=== PATIENT | male | born 1995 | race Caucasian/White ===

== ENCOUNTER 2017-06-30 09:32 | Emergency (ER) | payer OTHER ==
[~2017-06-30] VITALS: Ht 165.1 cm; Wt 68.3 kg
[2017-06-30 09:37] VITALS: BP 139/80
--- NOTE | 2017-06-30 10:09 | NUR ---
PATIENT AMBULATED TO BED 5 AT THIS TIME.
--- NOTE | 2017-06-30 10:19 | NUR ---
21/M BIB GIRLFRIEND PRESENT TO ER C/O 07/06 "ALL OVER" CONSTANT BODYACHES x 3 DAYS WITH PRODUCTIVE COUGH WITH WHITE PHELGM; PT ALSO C/O VOMITTING EPISODE X1 LAST NIGHT; PT IS NOW NAUSEOUS BUT DENIES ANY VOMITTING TODAY; SKIN IS PINK/WARM/DRY; AAOX4 WITH EVEN AND STEADY GAIT; LUNGS CLEAR BL; RR ARE EVEN AND UNLABORED; PT DENIES ANY DIARRHEA OR ANY URINARY COMPLAINTS; VSS; PATIENT POSITIONED FOR COMFORT; HOB ELEVATED; BEDRAILS UP X2; ALL NEEDS MET AT THIS TIME; AWAITING PRIMARY ER MD [place]; WILL CONTINUE TO MONITOR
[2017-06-30 10:45] VITALS: BP 112/81
--- NOTE | 2017-06-30 10:45 | NUR ---
Patient discharged with v/s stable. Written and verbal after care instructions given and explained. Patient alert, oriented and verbalized understanding of instructions. Ambulatory with steady gait. All questions addressed prior to discharge. ID band removed. Patient advised to follow up with PMD. Rx of Azithromycin given. Patient educated on indication of medication including possible reaction and side effects. Opportunity to ask questions provided and answered.
== END 2017-06-30 10:45 | disposition home or self-care (01) ==
LOC: MED 09:32
DX: J06.9 Acute upper respiratory infection, unspecified (principal)
CPT/HCPCS: 99283

== ENCOUNTER 2017-07-14 20:51 | Emergency (ER) | payer OTHER ==
[~2017-07-14] VITALS: Ht 165.1 cm; Wt 68.5 kg
[2017-07-14 20:56] VITALS: BP 160/101
--- NOTE | 2017-07-14 21:35 | NUR ---
21Y M BIB SELF STATES HAD SEX LAST NIGHT; BLISTERS, ITCHINESS TO PENIS SINCE THIS AM; DENIES DISCHARGE. PT DENIES ANY N/V/D, SOB, CP AT THE MOMENT. PT STATES BURNING SENSATION WHEN URINATE.
--- NOTE | 2017-07-14 21:35 | NUR ---
PT TAKEN TO BED 6
[2017-07-14] MEDS ORDERED: cefTRIAXone 250 MG in LIDOCAINE 1% ED 0.9 ML IM ONE (21:45)
[2017-07-14] MEDS ORDERED: AZITHROMYCIN 250 MG TAB PO ONE (21:45)
[2017-07-14 22:11] VITALS: BP 141/91
--- NOTE | 2017-07-14 22:11 | NUR ---
Patient discharged with v/s stable. Written and verbal after care instructions given and explained. Patient verbalized understanding. Ambulatory with steady gait. All questions addressed prior to discharge. Advised to follow up with PMD.
[2017-07-14 23:09] LABS: APPEARANCE,URINE CLEAR (CLEAR); BILIRUBIN,URINE NEGATIVE (NEGATIVE); BLOOD, URINE NEGATIVE (NEGATIVE); COLOR,URINE YELLOW (YELLOW); LEUKOCYTE ESTERASE ,URINE NEGATIVE (NEGATIVE); NITRITE, URINE NEGATIVE (NEGATIVE); UGLUCOSE NEGATIVE (NEGATIVE)
[2017-07-14 23:21] LABS: RBC,URINE 0-5 (RARE) /HPF (0-5); WBC,URINE 0-5 (RARE) /HPF (0-5)
[2017-07-17 12:21] LABS: CHLAMYDIA TRACHOMATIS AMP DNA Negative (Negative)
== END 2017-07-14 22:11 | disposition home or self-care (01) ==
LOC: MED 20:51
DX: Z20.2 Contact with and (suspected) exposure to infections with a predominantly sexual mode of transmission (principal)
CPT/HCPCS: 36415; 81001; 87491; 96372; 99283; J0696; J2001

== ENCOUNTER 2019-03-18 15:24 | Emergency (ER) | payer OTHER ==
[~2019-03-18] VITALS: Ht 167.6 cm; Wt 76.4 kg
[2019-03-18 15:54] VITALS: BP 137/78
--- NOTE | 2019-03-18 16:02 | NUR ---
STREP SAMPLE COLLECTED AND SEND TO THE LAB
--- NOTE | 2019-03-18 16:03 | NUR ---
PT AMBULATED TO ER BED 6
--- NOTE | 2019-03-18 16:11 | NUR ---
PT PRESENTED TO THE ED WITH THE CHEIF C/O COLD SYMPTOMS FOR 3 DAYS. REPORTS DRY COUGH AND FEVER. TOOK DICLO 1 HOUR AGO. PT ALSO REPORTS NAUSEA, DIARRHEA AND VOMITINGFOR 3 DAYS:DIARRHEA X3 AND VOMITING X2 TODAY. NO BLOOD IN D/V. DENIES MEDICAL HX. LUNGS CLEAR. ABDOMEN SOFT, ROUND AND NON-TENDER. ACTIVE BOWEL SOUND. STATES GENERALIZED BODY PAIN OF 10/10 AT THIS TIME.
[2019-03-18] MEDS ORDERED: AMOXICILLIN 500 MG CAP PO ONE (16:50)
[2019-03-18] MEDS ORDERED: LIDOCAINE VISCOUS 2% 20 ML UDC PO ONE (16:50)
[2019-03-18] MEDS ORDERED: KETOROLAC 60 MG/2 ML VIAL IM ONE (16:50)
--- NOTE | 2019-03-18 17:27 | NUR ---
PT BEING EVALUATED BY ER AT THIS TIME.
--- NOTE | 2019-03-18 17:33 | NUR ---
Patient discharged with v/s stable. Written and verbal after care instructions given and explained. Patient alert, oriented and verbalized understanding of instructions. Ambulatory with steady gait. All questions addressed prior to discharge. ID band removed. Patient advised to follow up with PMD. Rx of LIDOCAINE, PROMETHAZINE, MOTRIN AND AMOXICILLIN given. Patient educated on indication of medication including possible reaction and side effects. Opportunity to ask questions provided and answered.
[2019-03-18 17:34] VITALS: BP 127/73
== END 2019-03-18 17:33 | disposition home or self-care (01) ==
LOC: MED 15:24
DX: J02.8 Acute pharyngitis due to other specified organisms (principal); B96.89 Other specified bacterial agents as the cause of diseases classified elsewhere
CPT/HCPCS: 87081; 96372; 99283; J1885

== ENCOUNTER 2020-04-28 07:28 | Emergency (ER) | payer OTHER ==
[~2020-04-28] VITALS: Ht 162.6 cm; Wt 86.2 kg
[2020-04-28 07:32] VITALS: BP 136/73
--- NOTE | 2020-04-28 07:34 | NUR ---
Patient ambulated to bed 7.
--- NOTE | 2020-04-28 07:34 | NUR ---
Ambulated to bed 7
--- NOTE | 2020-04-28 07:37 | NUR ---
24 Y/O M C/C RIGHT UPPER TOOTHACHE X 1 DAY. PER PT INJURED TOOTH WITH TOOTH BRUSH. NO ORAL TRAUMA NOTED, NO LOST/CRACK OF TOOTH NOTED. TEETH INTACT. TAKEN IBUPROFEN WITH NO RELIEF. PT NKA. NO HX. NO RX. NO NVD. SIDE RAIL X1.
[2020-04-28 08:06] VITALS: BP 136/73
--- NOTE | 2020-04-28 08:06 | NUR ---
Patient discharged with v/s stable. Written and verbal after care instructions given and explained. Patient alert, oriented and verbalized understanding of instructions. Ambulatory with steady gait. All questions addressed prior to discharge. ID band removed. Patient advised to follow up with PMD. Rx of MOTRIN,PENICILLIN given. Patient educated on indication of medication including possible reaction and side effects. Opportunity to ask questions provided and answered.
== END 2020-04-28 08:06 | disposition home or self-care (01) ==
LOC: MED 07:28
DX: K08.89 Other specified disorders of teeth and supporting structures (principal)
CPT/HCPCS: 99283

== ENCOUNTER 2020-05-31 13:44 | Emergency (ER) | payer OTHER ==
[~2020-05-31] VITALS: Ht 167.6 cm; Wt 86.2 kg
[2020-05-31 13:56] VITALS: BP 138/90
--- NOTE | 2020-05-31 13:56 | NUR ---
Pt placed in tent for covid precautions
--- NOTE | 2020-05-31 13:59 | NUR ---
24 y/o male from home c/o sore throat x 2 days. Denies cough/sob. States every time the weather changes this occurs. RR even and unlabored. 8/10 sharp pain provoked by swallowing. Awake and alert. VSS
--- NOTE | 2020-05-31 14:55 | NUR ---
Dr Jurado in tent examining pt
[2020-05-31 15:06] VITALS: BP 130/80
--- NOTE | 2020-05-31 15:06 | NUR ---
Patient discharged with v/s stable. Written and verbal after care instructions given and explained. Patient alert, oriented and verbalized understanding of instructions. Ambulatory with steady gait. All questions addressed prior to discharge. ID band removed. Patient advised to follow up with PMD. Rx of PENICILLIN given. Patient educated on indication of medication including possible reaction and side effects. Opportunity to ask questions provided and answered.
== END 2020-05-31 15:06 | disposition home or self-care (01) ==
LOC: MED 13:44
DX: K04.7 Periapical abscess without sinus (principal)
CPT/HCPCS: 99283

== ENCOUNTER 2021-05-28 14:17 | Emergency (ER) | payer OTHER ==
[~2021-05-28] VITALS: Ht 167.6 cm; Wt 89.8 kg
[2021-05-28 14:22] VITALS: BP 125/89
--- NOTE | 2021-05-28 14:25 | NUR ---
[facility] STORY USING U/S TO FURTHER ASSESS THE PATIENT.
--- NOTE | 2021-05-28 14:25 | NUR ---
PT SEEN IN TRIAGE BY NIMO STORY.
[2021-05-28] MEDS ORDERED: IBUP-2213 PO (14:36)
[2021-05-28] MEDS ORDERED: CEPH-588 PO (14:36)
--- NOTE | 2021-05-28 14:54 | NUR ---
PT SEEN AND D/C BY [facility] STORY, NO NURSING INTERVENTIONS PROVIDED
--- NOTE | 2021-05-28 14:56 | NUR ---
Patient discharged with v/s stable. Written and verbal after care instructions ABOUT EXCISION AND SKIN LESIONS, LYMPHADENOPATHY, LIPOMA given and explained. Patient alert, oriented and verbalized understanding of instructions. Ambulatory with steady gait. All questions addressed prior to discharge. ID band removed. Patient advised to follow up with PMD. Rx of CEPHALEXIN AND IBUPROFEN given. Patient educated on indication of medication including possible reaction and side effects. Opportunity to ask questions provided and answered.
[2021-05-29] MEDS ORDERED: PENI-321 PO (05:34)
== END 2021-05-28 14:56 | disposition home or self-care (01) ==
LOC: MED 14:17
DX: L98.9 Disorder of the skin and subcutaneous tissue, unspecified (principal); R03.0 Elevated blood-pressure reading, without diagnosis of hypertension; R07.89 Other chest pain; Z79.899 Other long term (current) drug therapy
CPT/HCPCS: 99283

== ENCOUNTER 2021-05-29 04:23 | Emergency (ER) | payer OTHER ==
[~2021-05-29] VITALS: Ht 167.6 cm; Wt 89.8 kg
[~2021-05-29 04:23] MED LIST: CEPH-588 PO; IBUP-2213 PO
[2021-05-29 04:30] VITALS: BP 131/77
--- NOTE | 2021-05-29 04:33 | NUR ---
TO LOBBY A/W BED AMBULATORY
--- NOTE | 2021-05-29 05:20 | NUR ---
SEEN AND EXAMINED BY TUTU .
[2021-05-29] MEDS ORDERED: PENI-321 PO (05:34)
[2021-05-29 05:40] VITALS: BP 131/77
--- NOTE | 2021-05-29 05:40 | NUR ---
Patient discharged with v/s stable. Written and verbal after care instructions given and explained. Patient alert, oriented and verbalized understanding of instructions. Ambulatory with steady gait. All questions addressed prior to discharge. ID band removed. Patient advised to follow up with PMD. Rx of PENICILLIN V. given. Patient educated on indication of medication including possible reaction and side effects. Opportunity to ask questions provided and answered.
== END 2021-05-29 05:40 | disposition home or self-care (01) ==
LOC: MED 04:23
DX: K08.89 Other specified disorders of teeth and supporting structures (principal); Z79.899 Other long term (current) drug therapy
CPT/HCPCS: 99283

== ENCOUNTER 2021-08-10 08:37 | Emergency (ER) | payer OTHER ==
[~2021-08-10] VITALS: Ht 167.6 cm; Wt 89.8 kg
[~2021-08-10 08:37] MED LIST changes: +PENI-321 PO
[2021-08-10 08:49] VITALS: BP 131/83
--- NOTE | 2021-08-10 09:05 | NUR ---
SOB AND PRODUCTIVE COUGH WITH GREEN THICK PHLEGM X 2 WEEKS. NON VACCINATED. AFEBRILE. ALSO PRESENTS WITH ABCESS ON HIS GUMS.
[2021-08-10] MEDS ORDERED: AMOXIL/CLAVULANATE 875/125 MG 1 TAB PO SCH (09:15)
[2021-08-10] MEDS ORDERED: AMOX-999 PO (09:25)
--- NOTE | 2021-08-10 10:26 | NUR ---
PO MEDS GIVEN-NADR AT THIS TIME.
[2021-08-10 10:34] VITALS: BP 127/75
== END 2021-08-10 10:34 | disposition home or self-care (01) ==
LOC: MED 08:37
DX: K04.7 Periapical abscess without sinus (principal); Z20.822 Contact with and (suspected) exposure to COVID-19; R05.9 Cough, unspecified; R06.02 Shortness of breath; Z79.899 Other long term (current) drug therapy
CPT/HCPCS: 71045; 99284; U0003

== ENCOUNTER 2021-08-24 08:31 | Emergency (ER) | payer OTHER ==
[~2021-08-24] VITALS: Ht 167.6 cm; Wt 90.3 kg
[~2021-08-24 08:31] MED LIST changes: +AMOX-999 PO
[2021-08-24 08:47] VITALS: BP 139/86
--- NOTE | 2021-08-24 08:53 | NUR ---
PT AMBULATED TO BED
--- NOTE | 2021-08-24 09:02 | NUR ---
26YO M C/O PRODUCTIVE COUGH, RUNNY NOSE, SORE THROAT AND SOB X 1 MONTH. ALSO WITH DIARRHEA X 3 DAYS. PT WAS SEEN IN ER 2 WEEKS AGO AND WAS PRESCRIBED WITH UNRECALLED ANTIBIOTICS. PT ON 14TH DAY OF ABX. LUNG SOUNDS WHEEZING NOTED. PT STATES DIFFICULTY BREATHING WHEN PHELGM COMES UP. ON ROOM AIR, 98% O2 SATURATION. PMH: NONE MEDS: NONE NKA
--- NOTE | 2021-08-24 09:46 | NUR ---
ERMD AT BEDSIDE EXAMINING PT
[2021-08-24] MEDS ORDERED: ALBU0.0912 INH (09:58)
[2021-08-24] MEDS ORDERED: PRED20TA5 PO (09:58)
[2021-08-24] MEDS ORDERED: LORA10TA19 PO (09:58)
[2021-08-24 10:07] VITALS: BP 139/86
--- NOTE | 2021-08-24 10:11 | NUR ---
Patient discharged with v/s stable. Written and verbal after care instructions given and explained. Patient alert, oriented and verbalized understanding of instructions. Ambulatory with steady gait. All questions addressed prior to discharge. ID band removed. Patient advised to follow up with PMD. Rx of ALBUTEROL SULFATE, LORATADINE, PREDNISONE given. Patient educated on indication of medication including possible reaction and side effects. Opportunity to ask questions provided and answered.
== END 2021-08-24 10:11 | disposition home or self-care (01) ==
LOC: MED 08:31
DX: R05.9 Cough, unspecified (principal); R09.81 Nasal congestion; R03.0 Elevated blood-pressure reading, without diagnosis of hypertension; Z88.0 Allergy status to penicillin; Z79.899 Other long term (current) drug therapy
CPT/HCPCS: 99283

== ENCOUNTER 2021-10-15 15:01 | Emergency (ER) | payer OTHER ==
[~2021-10-15] VITALS: Ht 160 cm; Wt 92.5 kg
[~2021-10-15 15:01] MED LIST changes: +ALBU0.0912 INH; +LORA10TA19 PO; +PRED20TA5 PO
[2021-10-15 15:14] VITALS: BP 157/96
--- NOTE | 2021-10-15 15:17 | NUR ---
PT AMBULATED TO LOBBY WITH STEADY GAIT
--- NOTE | 2021-10-15 15:27 | NUR ---
PT MOVED TO [facility] MEADOWS AT CHAIR EVALUATING PATIENT
[2021-10-15] MEDS ORDERED: AMOX-1000 PO (15:30)
[2021-10-15] MEDS ORDERED: KETOROLAC 30 MG/ML VIAL IM ONE (15:30)
[2021-10-15] MEDS ORDERED: NAPR-54 PO (15:30)
[2021-10-15 15:45] VITALS: BP 157/96
--- NOTE | 2021-10-15 15:46 | NUR ---
PT ASSESSED AND DISHCARGED BY NIMO COREA
== END 2021-10-15 15:45 | disposition home or self-care (01) ==
LOC: MED 15:01
DX: K08.89 Other specified disorders of teeth and supporting structures (principal)
CPT/HCPCS: 96372; 99283; J1885

== ENCOUNTER 2021-10-28 13:32 | Emergency (ER) | payer OTHER ==
[~2021-10-28] VITALS: Ht 167.6 cm; Wt 92.1 kg
[~2021-10-28 13:32] MED LIST changes: +AMOX-1000 PO; +NAPR-54 PO
[2021-10-28 14:32] VITALS: BP 132/85
--- NOTE | 2021-10-28 19:57 | NUR ---
CALLED AT 1946 NO ANSWER
--- NOTE | 2021-10-28 20:18 | NUR ---
PT CLEARED FOR DISCHARGE BY DR. COLMENARES. PT LEFT WITHOUT INSTRUCTIONS.
== END 2021-10-28 20:18 | disposition home or self-care (01) ==
LOC: MED 13:32
DX: M79.671 Pain in right foot (principal); Z79.899 Other long term (current) drug therapy
CPT/HCPCS: 73630; 99283

== ENCOUNTER 2021-11-02 10:08 | Emergency (ER) | payer OTHER ==
[~2021-11-02] VITALS: Ht 167.6 cm; Wt 91.6 kg
[2021-11-02 10:30] VITALS: BP 137/76
--- NOTE | 2021-11-02 12:53 | NUR ---
LIZ SWAB COLLECTED AND WALKED TO LAB.
[2021-11-02] MEDS ORDERED: PRED20TA5 PO (13:48)
[2021-11-02] MEDS ORDERED: AZIT250T4 PO (13:48)
[2021-11-02] MEDS ORDERED: CODE5SYR5 PO (13:48)
[2021-11-02] MEDS ORDERED: NAPR-54 PO (13:48)
--- NOTE | 2021-11-02 14:09 | NUR ---
NO NURSING CARE GIVEN. Patient discharged with v/s stable. Written and verbal after care instructions given and explained. Patient alert, oriented and verbalized understanding of instructions. Ambulatory with steady gait. All questions addressed prior to discharge. ID band removed. Patient advised to follow up with PMD. Rx of ZITHROMAX, PROMETH-CODEIN, NAPROSYN given. Patient educated on indication of medication including possible reaction and side effects. Opportunity to ask questions provided and answered.
== END 2021-11-02 14:09 | disposition home or self-care (01) ==
LOC: MED 10:08
DX: B34.9 Viral infection, unspecified (principal); Z20.822 Contact with and (suspected) exposure to COVID-19; Z79.899 Other long term (current) drug therapy
CPT/HCPCS: 71045; 99284

== ENCOUNTER 2022-01-25 08:14 | Emergency (ER) | payer OTHER ==
[~2022-01-25] VITALS: Ht 167.6 cm; Wt 92.5 kg
[~2022-01-25 08:14] MED LIST changes: +AZIT250T4 PO; +CODE5SYR5 PO
[2022-01-25 08:23] VITALS: BP 135/70
--- NOTE | 2022-01-25 08:33 | NUR ---
Dr. bernal evaluating patient at bedside.
[2022-01-25] MEDS ORDERED: KETOROLAC 60 MG/2 ML VIAL IM ONE (08:35)
--- NOTE | 2022-01-25 08:38 | NUR ---
26 y/o male c/o right upper toothache x 2 days. Patient has 10/10, sharp pain. Patient thinks he bit hard food that caused the pain to come on. Patient denies taking any pain medication. Patient has dental appointment on February 11. Medical History: Denies NKDA
--- NOTE | 2022-01-25 08:41 | NUR ---
26/M PRESENTS TO ED WITH C/O TOOTHACHE TO RIGHT UPPER TOOTH X2 DAYS, STATES "I WAS EATING SOMETHING HARD AND THE PAIN BEGAN." PATIENT DENIES TAKING MEDICATION FOR PAIN, STATES HE MADE A DENTIST APPOINTMENT BUT IS NOT FOR A COUPLE WEEKS. DENIES FEVERS, CHILLS.
[2022-01-25] MEDS ORDERED: IBUP-2213 PO (08:47)
[2022-01-25] MEDS ORDERED: PENI500T20 PO (08:47)
[2022-01-25 09:05] VITALS: BP 135/70
--- NOTE | 2022-01-25 09:05 | NUR ---
Patient discharged with v/s stable. Written and verbal after care instructions given. Patient alert, oriented and verbalized understanding of instructions. Ambulatory with steady gait. All questions addressed prior to discharge. ID band removed. Patient advised to follow up with PMD. Rx of Penicillin V Potassium and Ibuprofen given. Opportunity to ask questions provided and answered.
== END 2022-01-25 09:05 | disposition home or self-care (01) ==
LOC: MED 08:14
DX: K04.7 Periapical abscess without sinus (principal); Z79.899 Other long term (current) drug therapy
CPT/HCPCS: 96372; 99283; J1885

== ENCOUNTER 2022-03-08 09:32 | Emergency (ER) | payer OTHER ==
[~2022-03-08] VITALS: Ht 167.6 cm; Wt 93.4 kg
[~2022-03-08 09:32] MED LIST changes: +PENI500T20 PO
[2022-03-08 09:38] VITALS: BP 151/95
[2022-03-08] MEDS ORDERED: ONDANSETRON 4 MG/2 ML VIAL IVP ONE (09:50)
[2022-03-08] MEDS ORDERED: fentaNYL citrate 0.05 MG/ML VIAL IVP ONE (09:50)
--- NOTE | 2022-03-08 09:54 | NUR ---
dr vallejo evaluating patient at bedside
[2022-03-08] MEDS ORDERED: ALBUTEROL SULFATE/IPRATROPIU 3 ML SOL IH ONE (10:00)
[2022-03-08] MEDS ORDERED: predniSONE 20 MG TAB PO ONE (10:00)
--- NOTE | 2022-03-08 10:08 | NUR ---
[facility] GIVEN ORDERED ENCOURAGED PATIENT FOR INTERMITTENT DEEP BREATH DURING THERAPY
--- NOTE | 2022-03-08 10:10 | NUR ---
26 y/o male BIB self. Patient states he smoked marijuana yesterday, passed out last night and had an unwitnessed fall. Patient has been having SOB since yesterday. Denies Nausea, Vomiting, Diarrhea, Dysuria, Hematuria. Patient is also having testicular pain, comes and goes 5/10. Medical History: Asthma NKDA
--- NOTE | 2022-03-08 10:12 | NUR ---
Radiology at bedside.
[2022-03-08] MEDS ORDERED: DESL1T12 PO (11:34)
[2022-03-08] MEDS ORDERED: ALBU0.0912 IH (11:34)
[2022-03-08] MEDS ORDERED: FLONAS NS (11:34)
[2022-03-08] MEDS ORDERED: PRED20TA5 PO (11:34)
--- NOTE | 2022-03-08 11:51 | NUR ---
Patient discharged with v/s stable. Written and verbal after care instructions given. Patient alert, oriented and verbalized understanding of instructions. Ambulatory with steady gait. All questions addressed prior to discharge. ID band removed. Patient advised to follow up with PMD. Rx of albuterol sulfate, Clarinex-D and prednisone given. Opportunity to ask questions provided and answered. Work note handed to patient.
--- NOTE | 2022-03-08 11:52 | NUR ---
The patient's care was reviewed and supervised by Pari Mendez RN.
== END 2022-03-08 11:51 | disposition home or self-care (01) ==
LOC: MED 09:32
DX: J45.901 Unspecified asthma with (acute) exacerbation (principal); J30.9 Allergic rhinitis, unspecified; F12.21 Cannabis dependence, in remission; R03.0 Elevated blood-pressure reading, without diagnosis of hypertension; F17.200 Nicotine dependence, unspecified, uncomplicated
CPT/HCPCS: 71045; 81002; 94640; 99283; J7512; Q0092

== ENCOUNTER 2022-05-22 14:21 | Emergency (ER) | payer OTHER ==
[~2022-05-22] VITALS: Ht 167.6 cm; Wt 90.7 kg
[~2022-05-22 14:21] MED LIST changes: +ALBU0.0912 IH; +DESL1T12 PO; +FLONAS NS
[2022-05-22 14:22] VITALS: BP 145/76
--- NOTE | 2022-05-22 14:30 | NUR ---
C/O SOB , COUGH X 3 WEEKS AND SORE THROAT, TOOTH PAIN X 2 WEEKS. O2SAT 95% AT THIS TIME.PMH: ASTHMA.DENIES N/V/D; SKIN IS PINK/WARM/DRY; AAOX4 WITH EVEN AND STEADY GAIT; LUNGS WHEEZING BL; HR EVEN AND REGULAR. PATIENT STATES PAIN OF 0/10 AT THIS TIME.
[2022-05-22] MEDS ORDERED: ALBUTEROL SULFATE/IPRATROPIU 3 ML SOL IH ONE (14:50)
[2022-05-22] MEDS ORDERED: PRED20TA5 PO (15:26)
[2022-05-22] MEDS ORDERED: AMOX500C25 PO (15:26)
[2022-05-22] MEDS ORDERED: PROM118S5 PO (15:26)
[2022-05-22] MEDS ORDERED: ALBU0.0912 IH (15:26)
--- NOTE | 2022-05-22 15:35 | NUR ---
Patient discharged with v/s stable. Written and verbal after care instructions given and explained. Patient alert, oriented and verbalized understanding of instructions. Ambulatory with steady gait. All questions addressed prior to discharge. ID band removed. Patient advised to follow up with PMD. Rx of AMOXICILLIN, DELTASONE, PROMETHAZINE given. Patient educated on indication of medication including possible reaction and side effects. Opportunity to ask questions provided and answered.
[2022-05-22] MEDS: predniSONE 20 MG TAB PO ONE ×2 (15:37→15:48)
[2022-05-22 15:56] VITALS: BP 144/79
== END 2022-05-22 15:56 | disposition home or self-care (01) ==
LOC: MED 14:21
DX: J45.909 Unspecified asthma, uncomplicated (principal); K08.89 Other specified disorders of teeth and supporting structures; R03.0 Elevated blood-pressure reading, without diagnosis of hypertension; R05.9 Cough, unspecified; R06.02 Shortness of breath; Z79.899 Other long term (current) drug therapy
CPT/HCPCS: 94640; 99283; J7512

== ENCOUNTER 2022-08-06 19:45 | Emergency (ER) | payer OTHER ==
[~2022-08-06] VITALS: Ht 162.6 cm; Wt 94.8 kg
[~2022-08-06 19:45] MED LIST changes: +AMOX500C25 PO; +PROM118S5 PO
[2022-08-06 19:53] VITALS: BP 132/77
--- NOTE | 2022-08-06 19:58 | NUR ---
PT TO [facility].
[2022-08-06] MEDS ORDERED: ALBUTEROL SULFATE/IPRATROPIU 3 ML SOL IH ONE ×2 (20:10→20:30)
[2022-08-06] MEDS ORDERED: ALBU0.0912 IH (20:12)
--- NOTE | 2022-08-06 20:14 | NUR ---
Respiratory Therapist with patient.
[2022-08-06] MEDS ORDERED: PRED20TA5 PO (20:28)
--- NOTE | 2022-08-06 21:00 | NUR ---
pt expressed relief. denies sob. states he feels so much better.
[2022-08-06 21:01] VITALS: BP 136/75
--- NOTE | 2022-08-06 21:01 | NUR ---
Patient discharged with v/s stable. Written and verbal after care instructions given and explained. Patient alert, oriented and verbalized understanding of instructions. Ambulatory with steady gait. All questions addressed prior to discharge. ID band removed. Patient advised to follow up with PMD. Rx of albuterol and prednisone given. Patient educated on indication of medication including possible reaction and side effects. Opportunity to ask questions provided and answered.
== END 2022-08-06 21:01 | disposition home or self-care (01) ==
LOC: MED 19:45
DX: J45.901 Unspecified asthma with (acute) exacerbation (principal)
CPT/HCPCS: 94640; 99283

== ENCOUNTER 2022-09-20 13:34 | Emergency (ER) | payer OTHER ==
[~2022-09-20] VITALS: Ht 167.6 cm; Wt 98.4 kg
[2022-09-20 13:38] VITALS: BP 133/79
[2022-09-20] MEDS ORDERED: ALBUTEROL SULFATE/IPRATROPIU 3 ML SOL IH ONE (13:45)
[2022-09-20] MEDS ORDERED: ALBUTEROL 0.083% 2.5 MG/3 ML NEBU INH ONE ×2 (14:10)
--- NOTE | 2022-09-20 14:30 | NUR ---
27 y/o male bib self, c/o cough and sob that started 1 hour prior to arrival. pt state she used inhaler when s/s started with moderate relief. pt states he is still having some difficulty breathing. a&ox4, ambulates with steady gait. skin pink/warm/dry/intact. denies fever, chills, n/v/d. lung wheezing bl, heart sounds even and regular. ermd made aware of pt. pmh: asthma nka
--- NOTE | 2022-09-20 14:33 | NUR ---
amena and flu swabbed
[2022-09-20] MEDS ORDERED: methylPREDNISolone SS 125 MG/2 ML VIAL IM ONE (15:40)
[2022-09-20] MEDS ORDERED: PRED20TA5 PO (15:43)
[2022-09-20] MEDS ORDERED: PROM118S5 PO (15:43)
[2022-09-20] MEDS ORDERED: ALBU0.0912 IH (15:43)
[2022-09-20 15:55] VITALS: BP 133/79
--- NOTE | 2022-09-20 15:55 | NUR ---
Patient discharged with v/s stable. Written and verbal after care instructions given and explained. Patient alert, oriented and verbalized understanding of instructions. Ambulatory with steady gait. All questions addressed prior to discharge. ID band removed. Patient advised to follow up with PMD. Rx of albuterol, prednisone, promethazine (sent) given. Patient educated on indication of medication including possible reaction and side effects. Opportunity to ask questions provided and answered. copy of labs and imaging given
== END 2022-09-20 15:55 | disposition home or self-care (01) ==
LOC: MED 13:34
DX: J45.901 Unspecified asthma with (acute) exacerbation (principal); Z20.822 Contact with and (suspected) exposure to COVID-19; Z79.899 Other long term (current) drug therapy; Z79.2 Long term (current) use of antibiotics; Z79.1 Long term (current) use of non-steroidal anti-inflammatories (NSAID)
CPT/HCPCS: 71045; 87426; 87804; 94640; 96372; 99285; J2930; J7613

== ENCOUNTER 2022-12-01 03:36 | Emergency (ER) | payer OTHER ==
[~2022-12-01] VITALS: Ht 167.6 cm; Wt 127.9 kg
[2022-12-01 03:50] VITALS: BP 121/75
--- NOTE | 2022-12-01 03:50 | NUR ---
to bed ambulatory
--- NOTE | 2022-12-01 04:12 | NUR ---
Dr. Marin examining patient.
--- NOTE | 2022-12-01 04:17 | NUR ---
Michel garcia in [facility] - 12/01/[address] at [address] Marin examining patient.
[2022-12-01] MEDS ORDERED: ALBUTEROL 0.083% 2.5 MG/3 ML NEBU INH ONE (04:20)
[2022-12-01] MEDS ORDERED: predniSONE 20 MG TAB PO ONE (04:20)
[2022-12-01] MEDS ORDERED: IPRATROPIUM 0.02% 0.5 MG/2.5 ML NEBU INH ONE (04:20)
--- NOTE | 2022-12-01 04:20 | NUR ---
Pt BIB family to ED C/O shortness of breath. Pt reports underlying history of asthma and states he ran out of his inhaler. Reports having a mild dry throat but denies any fever, hemoptysis, chills, nausea, vomiting. Symptoms mild in nature but called into work this morning. No alleviating factors
[2022-12-01] MEDS ORDERED: ALBU0.0912 IH (04:27)
[2022-12-01] MEDS ORDERED: PRED20TA5 PO ×2 (04:27→04:35)
== END 2022-12-01 05:25 | disposition home or self-care (01) ==
LOC: MED 03:36
DX: J45.909 Unspecified asthma, uncomplicated (principal)
CPT/HCPCS: 94640; 99283; J7512; J7613; J7644

== ENCOUNTER 2022-12-27 11:27 | Emergency (ER) | payer OTHER ==
[~2022-12-27] VITALS: Ht 167.6 cm; Wt 97.1 kg
[~2022-12-27 11:27] MED LIST changes: -DESL1T12 PO; +DESL1TBM PO
[2022-12-27 11:34] VITALS: BP 142/87
--- NOTE | 2022-12-27 12:00 | NUR ---
PA Garcia evaluating patient at bedside.
--- NOTE | 2022-12-27 12:19 | NUR ---
Lab at bedside.
[2022-12-27 12:55] LABS: APPEARANCE,URINE CLEAR (CLEAR); BILIRUBIN,URINE NEGATIVE (NEGATIVE); BLOOD, URINE NEGATIVE (NEGATIVE); COLOR,URINE YELLOW (YELLOW); LEUKOCYTE ESTERASE ,URINE NEGATIVE (NEGATIVE); NITRITE, URINE NEGATIVE (NEGATIVE); UGLUCOSE NEGATIVE (NEGATIVE)
== END 2022-12-27 13:00 | disposition home or self-care (01) ==
LOC: MED 11:27
DX: N48.89 Other specified disorders of penis (principal); J45.909 Unspecified asthma, uncomplicated; Z79.899 Other long term (current) drug therapy
CPT/HCPCS: 81003; 86592; 87491; 99283

== ENCOUNTER 2023-03-17 14:08 | Emergency (ER) | payer OTHER ==
[~2023-03-17] VITALS: Ht 167.6 cm; Wt 99.3 kg
[2023-03-17 14:36] VITALS: BP 135/80
[2023-03-17] MEDS ORDERED: ALBUTEROL SULFATE/IPRATROPIU 3 ML SOL IH ONE (15:40)
--- NOTE | 2023-03-17 15:48 | NUR ---
TO CHAIR Adrian MINER WITH NO DIFF.
[2023-03-17] MEDS ORDERED: IBUP-2213 PO (16:29)
[2023-03-17] MEDS ORDERED: ALBU0.0912 IH (16:29)
[2023-03-17] MEDS ORDERED: PRED50TA2 PO (16:29)
[2023-03-17] MEDS ORDERED: PROM118S5 PO (16:29)
[2023-03-17 17:10] VITALS: BP 139/88
--- NOTE | 2023-03-17 17:10 | NUR ---
Patient discharged with v/s stable. Written and verbal after care FOR ASTHMA given and explained. Patient alert, oriented and verbalized understanding of instructions. Ambulatory with steady gait. All questions addressed prior to discharge. ID band removed. Patient advised to follow up with PMD. Rx of ALBUTEROL, IBUPROFEN, PREDNISONE, PROMETHAZINE given. Opportunity to ask questions provided and answered.
== END 2023-03-17 17:10 | disposition home or self-care (01) ==
LOC: MED 14:08
DX: S29.011A Strain of muscle and tendon of front wall of thorax, initial encounter (principal); J45.901 Unspecified asthma with (acute) exacerbation; R03.0 Elevated blood-pressure reading, without diagnosis of hypertension; Z79.899 Other long term (current) drug therapy; Z79.1 Long term (current) use of non-steroidal anti-inflammatories (NSAID); Z79.2 Long term (current) use of antibiotics; X58.XXXA Exposure to other specified factors, initial encounter; Y92.89 Other specified places as the place of occurrence of the external cause; Y93.89 Activity, other specified; Y99.8 Other external cause status
CPT/HCPCS: 71101; 94640; 99283

== ENCOUNTER 2023-07-15 14:34 | Emergency (ER) | payer OTHER ==
[~2023-07-15] VITALS: Ht 172.7 cm; Wt 81.6 kg
[~2023-07-15 14:34] MED LIST changes: +PRED50TA2 PO
[2023-07-15 15:19] VITALS: BP 140/92; PULSE 93; RESP 18; TEMP 98; O2SAT 98
[2023-07-15] MEDS ORDERED: DEXAMETHASONE 10 MG/ML VIAL IM ONE (16:20)
[2023-07-15] MEDS ORDERED: KETOROLAC 30 MG/ML VIAL IM ONE (16:20)
[2023-07-15] MEDS ORDERED: AMOX1TAB8 PO (17:25)
[2023-07-15] MEDS ORDERED: PROM118S5 PO (17:25)
[2023-07-15] MEDS ORDERED: KETOROLAC 30 MG/ML VIAL ONE (17:36)
[2023-07-15] MEDS ORDERED: DEXAMETHASONE 10 MG/ML VIAL ONE (17:36)
== END 2023-07-15 17:43 | disposition home or self-care (01) ==
LOC: MED 14:34
DX: J02.8 Acute pharyngitis due to other specified organisms (principal); B97.89 Other viral agents as the cause of diseases classified elsewhere; J45.909 Unspecified asthma, uncomplicated; Z79.899 Other long term (current) drug therapy
CPT/HCPCS: 96372; 99284; J1100; J1885

== ENCOUNTER 2023-08-22 15:02 | Emergency (ER) | payer OTHER ==
[~2023-08-22] VITALS: Ht 167.6 cm; Wt 91.2 kg
[~2023-08-22 15:02] MED LIST changes: +AMOX1TAB8 PO
[2023-08-22 15:23] VITALS: BP 141/79; PULSE 88; RESP 18; TEMP 96.5; O2SAT 99
[2023-08-22] MEDS ORDERED: KETOROLAC 30 MG/ML VIAL IM ONE (16:30)
[2023-08-22] MEDS ORDERED: IBUP-2213 PO (16:43)
[2023-08-22] MEDS ORDERED: AMOX1TAB8 PO (16:43)
[2023-08-22] MEDS ORDERED: CHLO473S62 PO (16:43)
[2023-08-22 17:22] VITALS: BP 141/79; PULSE 88; RESP 18; TEMP 96.5; O2SAT 99
== END 2023-08-22 17:25 | disposition home or self-care (01) ==
LOC: MED 15:02
DX: K08.89 Other specified disorders of teeth and supporting structures (principal); J45.909 Unspecified asthma, uncomplicated; Z79.899 Other long term (current) drug therapy; Z79.2 Long term (current) use of antibiotics; Z79.1 Long term (current) use of non-steroidal anti-inflammatories (NSAID)
CPT/HCPCS: 96372; 99283; J1885

== ENCOUNTER 2023-09-09 16:14 | Emergency (ER) | payer OTHER ==
[~2023-09-09] VITALS: Ht 167.6 cm; Wt 88.9 kg
[~2023-09-09 16:14] MED LIST changes: +CHLO473S62 PO
[2023-09-09 16:18] VITALS: BP 157/94; PULSE 116; RESP 20; TEMP 99.2; O2SAT 98
[2023-09-09 16:56] LABS: FLU A ANTIGEN negative (NEGATIVE); FLU B ANTIGEN NEGATIVE (NEGATIVE)
[2023-09-09] MEDS ORDERED: ALBU0.0912 INH (17:24)
[2023-09-09] MEDS ORDERED: BENZ200C4 PO (17:24)
[2023-09-09 17:56] VITALS: BP 157/94; PULSE 116; RESP 20; TEMP 99.2; O2SAT 98
== END 2023-09-09 17:54 | disposition home or self-care (01) ==
LOC: MED 16:14
DX: J06.9 Acute upper respiratory infection, unspecified (principal); B34.9 Viral infection, unspecified; Z20.822 Contact with and (suspected) exposure to COVID-19; J45.909 Unspecified asthma, uncomplicated; Z79.899 Other long term (current) drug therapy; Z79.1 Long term (current) use of non-steroidal anti-inflammatories (NSAID); Z79.2 Long term (current) use of antibiotics
CPT/HCPCS: 99283

== ENCOUNTER 2024-04-27 02:40 | Emergency (ER) | payer OTHER ==
[~2024-04-27] VITALS: Ht 167.6 cm; Wt 99.3 kg
[~2024-04-27 02:40] MED LIST changes: +BENZ200C4 PO; +NAPR-337 PO; -NAPR-54 PO
[2024-04-27 02:49] VITALS: BP 135/72; PULSE 88; RESP 18; TEMP 98; O2SAT 98
[2024-04-27 02:53] VITALS: BP 135/72; PULSE 88; RESP 18; TEMP 98
[2024-04-27 03:08] VITALS: O2SAT 98
[2024-04-27] MEDS: IBUPROFEN 600 MG TAB PO ONE (03:21)
[2024-04-27] MEDS: ONDANSETRON 4 MG TAB PO ONE (03:22)
[2024-04-27] MEDS ORDERED: PENI500T20 PO (03:55)
[2024-04-27] MEDS ORDERED: NAPR-337 PO (03:55)
== END 2024-04-27 04:05 | disposition home or self-care (01) ==
LOC: MED 02:40
DX: K08.89 Other specified disorders of teeth and supporting structures (principal); J45.909 Unspecified asthma, uncomplicated; Z79.1 Long term (current) use of non-steroidal anti-inflammatories (NSAID); Z79.2 Long term (current) use of antibiotics; Z79.899 Other long term (current) drug therapy
CPT/HCPCS: 99283; Q0162

== ENCOUNTER 2024-05-11 09:34 | Emergency (ER) | payer OTHER ==
[~2024-05-11] VITALS: Ht 167.6 cm; Wt 95.9 kg
[2024-05-11 09:46] VITALS: BP 129/83; PULSE 90; RESP 18; TEMP 98; O2SAT 98
[2024-05-11] MEDS ORDERED: PENI500T20 PO (10:24)
== END 2024-05-11 10:28 | disposition home or self-care (01) ==
LOC: MED 09:34
DX: K04.7 Periapical abscess without sinus (principal); Z76.0 Encounter for issue of repeat prescription; J45.909 Unspecified asthma, uncomplicated; Z79.1 Long term (current) use of non-steroidal anti-inflammatories (NSAID); Z79.2 Long term (current) use of antibiotics; Z79.899 Other long term (current) drug therapy
CPT/HCPCS: 99281